=== PATIENT | female | born 1975 | race Two or more races ===

== ENCOUNTER 2022-12-27 05:32 | Emergency (ER) | payer OTHER ==
[~2022-12-27] VITALS: Ht 157.5 cm; Wt 70.3 kg
[2022-12-27 07:02] LABS: HEMATOCRIT 37.1 % (36.0-45.00); HEMOGLOBIN 11.5 g/dL (12.0-15.00); MEAN CELL VOLUME 70.8 fL (80.00-100.00); MEAN CORPUSCULAR HEMOGLOBIN 21.8 pg (27.00-32.0); MEAN CORPUSCULAR HGB CONC 30.9 g/dl (32.0-36.0); PLATELET COUNT 271 K/uL (150-450); RED BLOOD COUNT 5.25 M/uL (4.00-6.00); RED CELL DISTRIBUTION WIDTH 24.9 % (11.5-14.5)
[2022-12-27 07:33] LABS: CALCIUM 9.3 mg/dL (8.5-10.1); CREATININE SERUM 0.74 mg/dL (0.55-1.02); GFR 83.41; POTASSIUM 3.86 mEq/L (3.5-5.1)
== END 2022-12-27 11:19 | disposition home or self-care (01) ==
LOC: ER 05:32
DX: K59.00 Constipation, unspecified (principal); R10.84 Generalized abdominal pain; K29.70 Gastritis, unspecified, without bleeding

== ENCOUNTER 2024-10-08 20:53 | Emergency (ER) | payer OTHER ==
[~2024-10-08] VITALS: Ht 167.6 cm; Wt 113.4 kg
== END 2024-10-09 10:15 | disposition left against medical advice (07) ==
LOC: ER 20:53
DX: Z53.21 Procedure and treatment not carried out due to patient leaving prior to being seen by health care provider (principal)